=== PATIENT | female | born 1945 | race Caucasian/White ===

== ENCOUNTER 2017-02-28 12:45 | Day surgery (SDC) | payer MEDICARE, OTHER ==
--- NOTE | 2017-01-23 09:22 | NUR ---
F/U W/ PATIENT, ATTEMPT TO MAKE APPOINTMENT CONTACTED PATIENT PER MD TO SCHEDULE F/U IF PATIENT IS NOT BEING SEEN BY ANOTHER ONCOLOGIST. PATIENT WOULD NOT SAY IF SHE SHE WAS SEEING ANOTHER ONCOLOGIST, BUT STATED SHE WAS HAVING A COLONOSCOPY TOMORROW 01/24/17 AND THE "SURGEON WOULD CHECK HER THEN." ATTEMPTED AGAIN TO SCHEDULE APPOINTMENT W/ DR. DUARTE BUT PATIENT REFUSED.
[~2017-02-28] VITALS: Ht 157.5 cm; Wt 67.6 kg
[~2017-02-28 12:45] MED LIST: 0.9% Sodium Chloride 1,000 ML IV SCH; Sodium Biphos-Phos 133 mL Enema RECTAL PRN; Sodium Chloride LOK Flush 10 mL Syringe IV PRN; fentaNYL-PF 50 mCg/mL 2 mL Inj IVPUSH PRN
[2017-02-28 13:02] VITALS: BP 133/84; PULSE 75; RESP 16; O2SAT 97
[2017-02-28 13:57] VITALS: BP 98/49; PULSE 65; RESP 12; O2SAT 96
[2017-02-28 14:06] VITALS: BP 109/58; PULSE 68; RESP 12; O2SAT 96
--- NOTE | 2017-02-28 14:31 | ENDO ---
[address] [address] ENDOSCOPY PROCEDURE PATIENT: CHATO ANDRES : 1945 MR#: [id number] ADMIT: 02/28/2017 JOB ID: [id number] DATE OF SERVICE: 02/28/2017 PREPROCEDURE DIAGNOSIS: Personal history of colon polyp, pancolonic diverticulosis. POSTPROCEDURE DIAGNOSIS: Sigmoid colon polyp, pancolonic diverticulosis. PROCEDURE: Colonoscopy with biopsies. ENDOSCOPIST: Dr. Rajiv East. INDICATIONS: The patient is a 71-year-old woman who last underwent colonoscopy in [address] Skinner. At that time she had a tubular adenoma removed from the cecum, and was found to have pancolonic diverticulosis. After discussion of risks and benefits, she agreed to proceed with colonoscopy with biopsies. MEDICATIONS: Versed 4 mg, Fentanyl 75 mcg in incremental doses. FINDINGS: She had pancolonic diverticulosis again, many of which were fairly large mouthed. There was a 4 mm flat polyp in the sigmoid which was removed with a cold snare and sent for permanent pathology. The terminal ileum was intubated. DESCRIPTION OF PROCEDURE: Procedural sedation was achieved. The patient was connected to hemodynamic monitoring, pulse oximetry, capnography. After digital rectal exam, the PCF H 190 DL colonoscope was inserted and passed under visualization until the appendiceal orifice and ileocecal valve were visualized and photo documented. The terminal ileum was intubated for approximately 10 cm, which was normal. The scope was then withdrawn and carefully retroflexed in the rectum. She had pancolonic diverticulosis, some of which were large mouthed. There was a 4 mm flat polyp in the sigmoid colon which was removed with a cold snare and sent for permanent pathology. No other mucosal abnormalities were identified. The scope was withdrawn and the procedure terminated. She tolerated the entire procedure well. RECOMMENDATIONS: We will mail a letter with biopsy results. High-fiber diet is recommended. Most likely next colonoscopy will be recommended in five years.
--- NOTE | 2017-03-02 13:55 | PATH ---
SURGICAL PATHOLOGY Attending Physician:Bola German CASE STATUS: Signed Out PATIENT NAME: CHATO ANDRES PID: [id number] : 1945 DATE COLLECTED:02/28/2017 00:00 SPECIMEN: Colon, Polyp CLINICAL HISTORY: 1). SIGMOID COLON POLYP FINAL DIAGNOSIS: 1.SIGMOID COLON POLYP: POLYPOID-SHAPED FRAGMENT OF COLON MUCOSA ASSOCIATED WITH SUBMUCOSAL LYMPHOID AGGREGATES. ICD10 K63.5 GROSS DESCRIPTION: Received in formalin, labeled with the patient' s name and "sigmoid colon polyp", is one polypoid tissue fragment measuring 1.0 x 0.4 x 0.3 cm. The fragment is bisected and totally submitted in one cassette. ([id number]) MICRO DESCRIPTION: See diagnosis. ICD-9 CODES: CPT CODES: 1: 38296 Electronically Signed Out Wade Almanza MD [facility] Pathology [facility] [address], [place] [address] Technical component performed at [facility], [facility] [address], [place], [address]
== END 2017-02-28 23:59 | disposition home or self-care (01) ==
LOC: END 12:45
PROVIDERS: ATTEND Student in an Organized Health Care Education/Training Program
DX: Z12.11 Encounter for screening for malignant neoplasm of colon (principal); K63.5 Polyp of colon; K57.30 Diverticulosis of large intestine without perforation or abscess without bleeding; Z86.010 Personal history of colon polyps; I44.0 Atrioventricular block, first degree; G47.00 Insomnia, unspecified; J45.909 Unspecified asthma, uncomplicated; K21.9 Gastro-esophageal reflux disease without esophagitis; E78.2 Mixed hyperlipidemia; F32.9 Major depressive disorder, single episode, unspecified
CPT/HCPCS: 45385; 99153; G0500; J7030